=== PATIENT | male | born 1965 | race Caucasian/White ===

== ENCOUNTER → 2018-02-13 | Outpatient (CLI) | payer BC ==
[2018-02-13 08:50] LABS: ABSOLUTE BASOPHILS # (AUTO) 0.1 10^3/uL (0.0-0.2); ABSOLUTE EOSINOPHILS # (AUTO) 0.3 10^3/uL (0.0-0.6); ABSOLUTE LYMPHOCYTES (AUTO) 3.7 10^3/uL (0.5-4.7); ABSOLUTE MONOCYTES (AUTO) 0.6 10^3/uL (0.1-1.4); ABSOLUTE NEUT (AUTO) 4.7 10^3/uL (1.7-8.2); BASOPHILS % (AUTO) 1.1 % (0-2); EOSINOPHILS % (AUTO) 3.4 % (0-6); HEMOGLOBIN 13.9 g/dL (13.5-17.0); LYMPHOCYTES % (AUTO) 39.4 % (13-45); MEAN CORPUSCULAR HEMOGLOBIN 30.4 pg (27.0-33.4); MEAN CORPUSCULAR HGB CONC 34.6 g/dL (32.0-36.0); MEAN CORPUSCULAR VOLUME 88 fl (80-97); PLATELET COUNT 393 10^3/uL (150-450); RED BLOOD COUNT 4.56 10^6/uL (4.35-5.55); SEGMENTED NEUTROPHILS % (AUTO) 50.1 % (42-78); TOTAL CELLS COUNTED % (AUTO) 100 %; WHITE BLOOD COUNT 9.4 10^3/uL (4.0-10.5)
[2018-02-13 09:25] LABS: ALANINE AMINOTRANSFERASE 76 U/L (21-72); ALBUMIN 4.4 g/dL (3.5-5.0); ALKALINE PHOSPHATASE 97 U/L (38-126); ANION GAP 14 (5-19); ASPARTATE AMINO TRANSFERASE 48 U/L (17-59); BILIRUBIN,DIRECT 0.3 mg/dL (0.0-0.4); BILIRUBIN,TOTAL 0.6 mg/dL (0.2-1.3); BLOOD UREA NITROGEN 16 mg/dL (7-20); CALCIUM 9.7 mg/dL (8.4-10.2); CARBON DIOXIDE 22 mmol/L (22-30); CHLORIDE 107 mmol/L (98-107); GLUCOSE 110 mg/dL (75-110); POTASSIUM 4.5 mmol/L (3.6-5.0); SODIUM 143.1 mmol/L (137-145); TOTAL PROTEIN 7.7 g/dL (6.3-8.2)
== END ==
LOC: LAB 08:32
PROVIDERS: ATTEND Surgery
DX: Z01.818 Encounter for other preprocedural examination (principal); I10 Essential (primary) hypertension
CPT/HCPCS: 36415; 80053; 84153; 85025

== ENCOUNTER 2018-02-20 09:50 | Day surgery (SDC) | payer BC ==
[~2018-02-20 09:50] MED LIST: DIPHENHYDRAMINE HCL 50 MG/ML VIAL ONE; EPINEPHRINE INJ 1 MG/10 ML DISP.SYRIN ONE; FENTANYL CITRATE INJ/PF 100 MCG/2 ML AMPUL ONE; FLUMAZENIL INJ 0.5 MG/5 ML VIAL ONE; GLUCAGON,HUMAN RECOMB 1 MG INJ ONE; MIDAZOLAM 2 MG/2 ML INJ ONE; NALOXONE HCL INJ/PF 0.4 MG/1 ML SDV ONE; ONDANSETRON HCL INJ/PF 4 MG/2 ML SDV ONE
[2018-02-20] MEDS: MIDAZOLAM 2 MG/2 ML INJ ONE ×2 (10:12→10:17)
--- NOTE | 2018-02-20 10:46 | Discharge Summary ---
Discharge Summary (SDC) - Discharge Final Diagnosis: Right colon polyp Date of Surgery: 02/20/18 Discharge Date: 02/20/18 Condition: Good Treatment or Instructions: [facility] [place] [id number] POST ENDOSCOPY DISCHARGE INSTRUCTIONS 1. Diet: Start clear liquids that a regular diet as tolerated. 2. Resume all preoperative medications. All oral anticoagulants and aspirins can be resumed 24 hours after procedure. 3. If a polypectomy was performed some bleeding per rectum may occur. This should stop within 3 days. If not, please contact the office. 4. If you had a colonoscopy you may experience some bloating and delayed return of normal bowel function for several days, your regular bowel movement pattern should resume within a week. 5. Please contact [facility] at to make an appointment with Dr. Rosas for 1 to 3 weeks following procedure. 6. If you have any questions or concerns regarding your care,treatment plan or follow up, please contact our office. 7. Per clinical guidelines we recommend you undergo a repeat colonoscopy in 3 years. Referrals: SUKHWINDER ROSAS MD [Primary Care Provider] - Discharge Diet: As Tolerated Discharge Activity: Activity As Tolerated Home Care Assistance: None Needed Report the Following to Your Physician Immediately: Shortness of Breath, Increase in Pain, Fever over 101 Degrees
--- NOTE | 2018-02-20 10:50 | Operative Report ---
Operative Report DATE OF SURGERY: 02/20/18 PREOPERATIVE DIAGNOSIS: 1. Screening for colon cancer. 2. Family history of colon cancer POSTOPERATIVE DIAGNOSIS: Same with right colon polyp OPERATION: 1. Total colonoscopy to cecum. 2. Right colon polypectomy. SURGEON: SUKHWINDER RAMOS ANESTHESIA: Moderate Sedation TISSUE REMOVED OR ALTERED: Right colon polyp COMPLICATIONS: None ESTIMATED BLOOD LOSS: Scant INTRAOPERATIVE FINDINGS: See below PROCEDURE: Obtaining informed consent the patient was taken from the preoperative holding area to the main endoscopy suite where monitoring devices were attached to the patient. Plan and surgical timeout were conducted The patient was placed in the left lateral decubitus position with knees to chest. A perianal examination was performed. There was no visible or palpable anorectal pathology. Sphincter tone was felt to be normal. The flexible adult colonoscope was advanced through the anal rectal canal, all the way to the cecum. Visualization of the cecum was achieved and the ileocecal valve, the appendiceal orifice and transillumination of the anterior abdominal wall were all accomplished.. This was a very good study on a bowel that was well prepped from the transverse colon distally; however the a sending colon was covered with a thick mucoid mixed with stool preventing complete visualization of the entire mucosa. Efforts were made to wash off the debris. The colonoscope was withdrawn slowly and methodically checked and the mucosa carefully. There was no evidence of tumor, stricture, bleeding there was a small polyp of the ascending colon which was removed in 3 bites with cold forceps device. Specimen sent to pathology. There was no evidence of diverticuloses. The scope was slowly withdrawn through the anal rectal canal. Complete visualization of the rectum was achieved with photodocumentation. The scope was withdrawn to the patient's anus. The patient tolerated the procedure well and was taken to the recovery area in stable condition. per surveillance guidelines, patient will be an appropriate candidate for follow -up colonoscopy in 3 years.
[2018-02-20 12:02] VITALS: BP 132/89
== END 2018-02-20 11:55 | disposition home or self-care (01) ==
LOC: END 09:50
PROVIDERS: ATTEND Surgery
DX: Z12.11 Encounter for screening for malignant neoplasm of colon (principal); Z80.0 Family history of malignant neoplasm of digestive organs; D12.2 Benign neoplasm of ascending colon; I12.9 Hypertensive chronic kidney disease with stage 1 through stage 4 chronic kidney disease, or unspecified chronic kidney disease; N18.9 Chronic kidney disease, unspecified; I82.291 Chronic embolism and thrombosis of other thoracic veins; Z87.891 Personal history of nicotine dependence; Z79.82 Long term (current) use of aspirin; Z79.899 Other long term (current) drug therapy
CPT/HCPCS: 45380; 88305 ×2; J2250; J3010; J0171; J1200; J1610; J2310; J2405; J3490